=== PATIENT | male | born 2000 | race Caucasian/White ===

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

== ENCOUNTER 2023-02-21 16:26 | Emergency (ER) | payer SELFPAY ==
[~2023-02-21] VITALS: Ht 167.6 cm; Wt 59.0 kg
[~2023-02-21 16:26] MED LIST changes: +ACET-2619 PO; +LIDO5TDM59 TP
[2023-02-21 16:50] VITALS: BP 122/76; PULSE 89; RESP 18; TEMP 98; O2SAT 98
[2023-02-21] MEDS ORDERED: IBUP-2213 PO (18:54)
[2023-02-21 21:45] VITALS: BP 122/76; PULSE 89; RESP 18; TEMP 98; O2SAT 98
== END 2023-02-21 21:45 | disposition home or self-care (01) ==
LOC: MED 16:26
DX: M54.10 Radiculopathy, site unspecified (principal); R03.0 Elevated blood-pressure reading, without diagnosis of hypertension; Z79.899 Other long term (current) drug therapy; Z79.1 Long term (current) use of non-steroidal anti-inflammatories (NSAID)
CPT/HCPCS: 99283